=== PATIENT | female | born 1960 | race Caucasian/White ===

== ENCOUNTER → 2024-02-26 18:29 | Outpatient (REF) | payer MEDICARE, SELFPAY | LOC: WDC 18:29 | PROVIDERS: ATTENDING PHYSICIAN Family Medicine; FAMILY PHYSICIAN Obstetrics & Gynecology | DX: Z12.31 Encounter for screening mammogram for malignant neoplasm of breast (principal) | CPT/HCPCS: 77063; 77067 ==

== ENCOUNTER → 2024-02-29 09:21 | Outpatient (REF) | payer MEDICARE, SELFPAY | LOC: WDC 09:21 | PROVIDERS: ATTENDING PHYSICIAN Family Medicine | DX: R92.8 Other abnormal and inconclusive findings on diagnostic imaging of breast (principal) | CPT/HCPCS: 76642 ==

== ENCOUNTER → 2024-06-07 09:32 | Outpatient (REF) | payer MEDICARE, SELFPAY | LOC: RAD 09:32 | PROVIDERS: ATTENDING PHYSICIAN Nurse Practitioner; FAMILY PHYSICIAN Family Medicine | DX: R39.14 Feeling of incomplete bladder emptying (principal); N39.41 Urge incontinence; M25.551 Pain in right hip; M54.50 Low back pain, unspecified | CPT/HCPCS: 72110; 73502; 76770; 76856 ==

== ENCOUNTER → 2025-01-06 15:55 | Outpatient (REF) | payer MEDICARE, SELFPAY | LOC: RAD 15:55 | PROVIDERS: ATTENDING PHYSICIAN Family Medicine | DX: I10 Essential (primary) hypertension (principal) | CPT/HCPCS: 93005 ==

== ENCOUNTER → 2025-05-09 13:37 | Outpatient (REF) | payer MEDICARE, SELFPAY | LOC: WDC 13:37 | PROVIDERS: ATTENDING PHYSICIAN Family Medicine | DX: I47.10 Supraventricular tachycardia, unspecified (principal); Z86.79 Personal history of other diseases of the circulatory system; Z12.31 Encounter for screening mammogram for malignant neoplasm of breast | CPT/HCPCS: 77063; 77067 ==

== ENCOUNTER → 2025-05-22 14:33 | Outpatient (REF) | payer MEDICARE, SELFPAY | LOC: HWRAD 14:33 | PROVIDERS: ATTENDING PHYSICIAN Family Medicine | DX: E04.1 Nontoxic single thyroid nodule (principal) | CPT/HCPCS: 76536 ==

== ENCOUNTER → 2025-05-26 15:27 | Outpatient (REF) | payer MEDICARE, SELFPAY | LOC: MRI 15:27 | PROVIDERS: ATTENDING PHYSICIAN Specialist; FAMILY PHYSICIAN Family Medicine | DX: G95.9 Disease of spinal cord, unspecified (principal) | CPT/HCPCS: 72156; A9575 ==

== ENCOUNTER → 2025-05-29 15:04 | Outpatient (REF) | payer MEDICARE, SELFPAY | LOC: RCS 15:04 | PROVIDERS: ATTENDING PHYSICIAN Internal Medicine Cardiovascular Disease; FAMILY PHYSICIAN Family Medicine | DX: I47.10 Supraventricular tachycardia, unspecified (principal); I47.29 Other ventricular tachycardia; I10 Essential (primary) hypertension | CPT/HCPCS: 93306 ==

== ENCOUNTER → 2025-06-09 11:10 | Outpatient (REF) | payer MEDICARE, SELFPAY | LOC: RCS 11:10 | PROVIDERS: ATTENDING PHYSICIAN Internal Medicine Cardiovascular Disease; FAMILY PHYSICIAN Family Medicine | DX: I47.10 Supraventricular tachycardia, unspecified (principal); Z86.79 Personal history of other diseases of the circulatory system | CPT/HCPCS: 71275; Q9967 ==

== ENCOUNTER → 2025-07-08 08:34 | Outpatient (REF) | payer MEDICARE, SELFPAY | LOC: HWRCS 08:34 | PROVIDERS: ATTENDING PHYSICIAN Internal Medicine Cardiovascular Disease; FAMILY PHYSICIAN Family Medicine | DX: I42.9 Cardiomyopathy, unspecified (principal); I44.7 Left bundle-branch block, unspecified; R26.2 Difficulty in walking, not elsewhere classified | CPT/HCPCS: 78452; 93017; A9500; J2785 ==

== ENCOUNTER → 2025-08-06 07:17 | Outpatient (REF) | payer MEDICARE, SELFPAY ==
[2025-08-06 07:35] VITALS: BP 176/88; BP_SYST 71
== END ==
LOC: RADI 07:17
PROVIDERS: ATTENDING PHYSICIAN Otolaryngology; FAMILY PHYSICIAN Family Medicine
DX: E04.1 Nontoxic single thyroid nodule (principal)
CPT/HCPCS: 10005; 88173

== ENCOUNTER → 2025-09-03 12:06 | Outpatient (REF) | payer MEDICARE, SELFPAY ==
[2025-09-03 12:56] VITALS: BP 112/46; BP_SYST 70
== END ==
LOC: RADI 12:06
PROVIDERS: ATTENDING PHYSICIAN Otolaryngology; FAMILY PHYSICIAN Family Medicine
DX: E04.1 Nontoxic single thyroid nodule (principal)
CPT/HCPCS: 10005; 88173; 88305

== ENCOUNTER → 2025-10-17 08:15 | Outpatient (REF) | payer MEDICARE, SELFPAY | LOC: RCS 08:15 | PROVIDERS: ATTENDING PHYSICIAN Internal Medicine Cardiovascular Disease; FAMILY PHYSICIAN Family Medicine | DX: I42.9 Cardiomyopathy, unspecified (principal); R94.39 Abnormal result of other cardiovascular function study | CPT/HCPCS: 93306 ==